=== PATIENT | male | born 1955 | race Caucasian/White ===

== ENCOUNTER 2021-04-25 08:54 | Emergency (ER) | payer MEDICARE, OTHER, SELFPAY ==
[2021-04-25 09:07] VITALS: BP 196/96; PULSE 96; RESP 15; TEMP 36.3; O2SAT 98; BMI 34.8
--- NOTE | 2021-04-25 12:30 | ED_ITS ---
HPI - Neuro Symptoms/Deficit General Chief Complaint: Neuro Symptoms/Deficit Stated Complaint: Drooping of face- rt side Time Seen by Provider: 04/25/21 09:08 Source: patient Mode of arrival: Ambulatory Limitations: no limitations History of Present Illness HPI Narrative: 65-year-old male nonsmoker with history of renal cell carcinoma presents with his in the chief complaint of right-sided facial weakness sin ce yesterday. He states that yesterday morning he noticed the right side of his face was weak, he had a hard time closing his right eye. He denies any blurred vision, trouble speech, balance issues or numbness, tingling or weakness of his extremities. He denies chest pain or shortness of breath. He has not activated as a code stroke as he is outside of any therapeutic window and does not clini herminia me criteria for large vessel occlusion. On Anticoagulants: No Related Data Previous Rx's Medication Instructions Recorded prednisone 20 mg tablet 60 mg PO DAILY 7 Days tab 04/25/21 valacyclovir 1 gram tablet 1,000 mg PO TID 10 Days #30 tab 04/25/21 Allergies Allergy/AdvReac Type Severity Reaction Status Date / Time No Known Drug Allergies Allergy Verified 04/25/21 09:07 Review of Systems Review of Systems Narrative: GENERAL: Denies chills, fatigue, malaise, fever, sweats. HEENT: Denies sinus pain, ear pain, sore throat, difficulty swallowing, dizziness. RESPIRATORY: Denies dyspnea, cough, wheezing, hemoptysis, sputum. CARDIOVASCULAR: Denies chest pain, palpitations, orthopnea, edema, GASTROINTESTINAL: Denies nausea, vomiting, abdominal pain, diarrhea, consti pation, melena. : Denies dysuria, frequency, incontinence, hematuria, urinary retention. MUSCULOSKELETAL: denies weakness, joint pain, or bony pain SKIN: Denies rash, skin lesions, or other NEUROLOGIC: See HPI PSYCHIATRIC: No concerning psychosocial issues. 12 point review of systems is negative except for those stated above Hematologic/Lymphatic On Anticoagulants: No Patient History Social History Smoking Status: Unknown if ever smoked Smoking Status: Unknown if ever smoked alcohol intake frequency: holidays/special occasions only Substance Use Type: does not use Exam Narrative Exam Narrative: GENERAL: [65] year old patient appears stated age. Well- developed patient, in mild distress. HEAD: Atraumatic. Normocephalic. EYES: Pupils equal round and reactive. Extraocular motions intact. No scleral icterus. No injection or drainage. ENT: Nose without bleeding, purulent drainage. Throat without erythema, tonsillar hypertrophy or exudate. Airway patent. NECK: Trachea midline. Non tender CARDIOVASCULAR: Regular rate and rhythm without murmurs, gallops, or rubs. RESPIRATORY: Clear to auscultation. Breath sounds equal bilaterally. No wheezes, rales, or rhonchi. GASTROINTESTINAL: Abdomen soft, non-tender, nondistended. EXTREMITIES: No edema or joint tenderness. BACK: Nontender without deformity or crepitance. No flank tenderness. NEURO: AOx3. Right-sided facial weakness with forehead involvement SKIN: No rash or erythema of visible areas Initial Vital Signs Initial Vital Signs: Vital Signs Temperature 97.3 F L 04/25/21 09:07 Pulse Rate 96 H 04/25/21 09:07 Respiratory Rate 15 04/25/21 09:07 Blood Pressure 196/96 H 04/25/21 09:07 Pulse Oximetry 98 04/25/21 09:07 Scores NIH Stroke Scale Level of Conciousness: Alert, keenly responsive Ask month/age: Answers both questions correctly. Open/close eyes, close hand: Performs both tasks correctly Best gaze horizontal: Normal Visual luo: No visual loss Facial palsy: Partial paralysis, total or near total paralysis of lower face Left arm drift: No drift for full 10 sec Right arm drift: No drift for full 10 sec Left leg drift: No drift for full 5 sec Right leg drift: No drift for full 5 sec Limb ataxia: Absent Sensory on face/arms/legs: Normal, no sensory loss Best language: No aphasia, normal Dysarthria: Mild to mod,some slurring Extinction or inattention: No abnormality Total NIH Stroke scale score: 3 Course Vital Signs Vital signs: Vital Signs - 8 hr 04/25/21 09:07 Temperature 97.3 F L Pulse Rate 96 H Respiratory Rate 15 Blood Pressure 196/96 H Pulse Oximetry 98 MDM - Neuro Symptoms/Deficit Medical Records Medical records narrative: Stroke and Vega's palsy considered. 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 NIH stroke scales very reassuring, physical exam is otherwise reassuring. No indication for advanced imaging. Extensive return precautions given and questions answered to the satisfaction of the patient Discharge Plan Departure Patient Disposition: Home Clinical Impression: Vega's palsy Instructions: Vega Palsy Activity Restrictions/Additional Instructions: *You have been diagnosed with [Vega's palsy] *What to do: *Please continue to take your regular medications as directed. [x ] New medication prescriptions sent to your pharmacy: [place] [place] [ ] New medication written as a paper prescription [ ] No new medications given *Please follow up with your primary care provider in 2-3 days, call for an appointment. Let them know you were seen in the Emergency Department and that we ask that you be seen in follow up. We will electronically transmit a record of today's note if your PCP is in our system *If you do not have a primary care provider please contact the [facility] Resource line at [phone]. They will ask some questions about your medical history and help get you set up with a doctor in the community. *Return to Emergency Department if you should have any new, worsening or concerning symptoms, such as [fever greater than 101 F, shaking chills, worsening pain, persistent vomiting or other bothersome symptoms] Prescriptions: New prednisone 20 mg tablet 60 mg PO DAILY 7 Days RF: 0 valacyclovir 1 gram tablet 1,000 mg PO TID 10 Days Qty: 30 RF: 0 Referrals: Elba Tee MD [Primary Care Provider] -
--- NOTE | 2021-04-25 12:35 | PC.NURSE ---
Pt thanked for patience. Education given re importance of daily blood sugar testing, general diabetes education. Pt/ verbalized understanding.
[2021-04-25 12:53] VITALS: BP 176/91; PULSE 61; RESP 12; O2SAT 98
== END 2021-04-25 12:56 | disposition home or self-care (01) ==
PROVIDERS: Emergency Provider Emergency Medicine; PCP Internal Medicine
DX: G51.0 Bell's palsy (principal)
CPT/HCPCS: 99281

== ENCOUNTER → 2021-06-24 12:48 | Outpatient (CLI) | payer MEDICARE, OTHER, SELFPAY ==
--- NOTE | 2021-06-24 | DI.MRI.S_ITS ---
PROCEDURE: MR ANGIO HEAD WO CON INDICATIONS: Pulsatile tinnitus, unspecified ear TECHNIQUE: Noncontrast axial 3-D [id number] MR angiogram, with 3-dimensional maximum intensity projection (MIP) reformats of the internal carotid arteries and posterior circulation then performed. COMPARISON: None. FINDINGS: Image quality: Excellent. Anterior circulation: Intracranial internal carotid arteries demonstrate normal size and intraluminal flow signal. The flow within the paired anterior cerebral arteries is normal and symmetric. The flow within the middle cerebral arteries is normal and symmetric. The anterior communicating artery is seen. No stenoses, occlusions, or aneurysms. Posterior circulation: Visualized portions of the vertebral arteries demonstrate normal caliber, and join to form a normal appearing basilar artery. The flow within the posterior cerebral arteries is normal and symmetric. No stenoses, occlusions, or aneurysms. Prominent bilateral posterior communicating arteries can be seen. In this patient with this given history, scrutiny is given to the internal auditory canals. On these images, no abnormal vascular loops can be seen into the internal auditory canals. IMPRESSION: No imaging explanation is found for this patient's presenting symptoms. Dictated by: Olegario Freeman M.D. on 06/24/2021 at 13:13 Approved by: Olegario Freeman M.D. on 06/24/2021 at 13:14
== END ==
PROVIDERS: PCP Internal Medicine; Referring Provider Internal Medicine; Visit Provider Internal Medicine
DX: H93.A9 Pulsatile tinnitus, unspecified ear (principal)
CPT/HCPCS: 70544

== ENCOUNTER → 2021-08-20 13:02 | Outpatient (CLI) | payer MEDICARE, OTHER, SELFPAY ==
--- NOTE | 2021-08-20 | DI.MRI.S_ITS ---
PROCEDURE: MR ANGIO NECK W CON INDICATIONS: Pulsatile tinnitus, right ear TECHNIQUE: Axial and sagittal TruFISP through the neck. Coronal dynamic MRA after the administration of contrast in the arterial and venous phases, with rotating 3-dimensional maximum intensity projection (MIP) reformats constructed from subtraction images. COMPARISON: None. FINDINGS: Image quality: Excellent. Carotid system: Great vessels demonstrate a conventional anatomy as they arise from the aortic arch. The origins of the common carotid arteries appear normal. The calibers and courses of the common carotid arteries are likewise normal. The carotid bifurcations appear normal bilaterally. The internal carotid arteries are widely patent up to the [place]. Posterior circulation: The origins of the vertebral arteries are unremarkable. The more superior portions of the vertebral arteries demonstrate normal course and caliber. Vertebral arteries join to form a normal appearing basilar artery. Miscellaneous: Subclavian arteries are patent throughout. Pre-contrast images through the neck demonstrate no soft tissue abnormalities. IMPRESSION: 1. No internal carotid artery stenosis bilaterally. 2. Patent bilateral vertebral arteries. Any quantitative measurements of stenosis were performed using NASCET criteria. Dictated by: Bud Casper M.D. on 08/20/2021 at 14:19 Approved by: Bud Casper M.D. on 08/20/2021 at 14:21
== END ==
PROVIDERS: PCP Internal Medicine; Referring Provider Otolaryngology; Visit Provider Otolaryngology
DX: H93.A1 Pulsatile tinnitus, right ear (principal)
CPT/HCPCS: 70548; A9579